=== PATIENT | male | born 1950 | race Caucasian/White ===

== ENCOUNTER 2017-04-03 09:11 | Emergency (ER) | payer BC ==
[~2017-04-03] VITALS: Ht 172.7 cm; Wt 79.0 kg
[~2017-04-03 09:11] MED LIST: ALEVE220 MG PO; ASPIR-LOW81 MG PO; NITROSTAT0.4 MG SL
[2017-04-03 10:04] LABS: APPEARANCE CLOUDY ((CLEAR)); BILIRUBIN NEGATIVE; BLOOD LARGE; COLOR AMBER ((YELLOW)); GLUCOSE (STRIP) NEGATIVE; KETONES NEGATIVE; LEUKOCYTES NEGATIVE; NITRITE NEGATIVE; PROTEIN (STRIP) 100; SPECIFIC GRAVITY 1.025 (1.000-1.030); UROBILINOGEN 0.2 MG/DL (0.2-1.0)
[2017-04-03 10:12] LABS: EPITHELIAL CELLS RARE /HPF; MUCUS 1+ /LPF; RED BLOOD CELLS TNTC /HPF (0-5); WHITE BLOOD CELLS 0-5 /HPF (0-5)
[2017-04-03 10:13] LABS: BACTERIA 1+ /HPF; CALCIUM OXALATE CRYSTALS RARE /HPF; HYALINE CASTS 0-5 /LPF; UCUL ADDED? YES
[2017-04-03 10:47] LABS: HEMATOCRIT 37.9 % (38.0-50.0); HEMOGLOBIN 12.5 G/DL (12.5-16.6); MCH 28.9 PG (29.0-34.0); MCV 87.7 FL (86-99); PLATELET COUNT 189 K/uL (156-360); RBC DIS.WIDTH-CV 12.2 % (11.8-14.6); RBC DIS.WIDTH-SD 39.5 % (39-53); RED BLOOD COUNT 4.32 M/uL (4.00-5.50); WHITE BLOOD COUNT 6.1 K/uL (4.1-10.2)
[2017-04-03 10:56] LABS: ALBUMIN 3.5 g/dL (3.2-4.8)
[2017-04-03 10:57] LABS: CHLORIDE 109 mEq/L (99-109); POTASSIUM 4.2 mEq/L (3.7-5.4); SODIUM 139 mEq/L (136-147)
[2017-04-03 10:59] LABS: GLUCOSE 123 mg/dL (70-99); TOTAL PROTEIN 5.8 g/dL (6.4-8.3)
[2017-04-03 11:01] LABS: TOTAL BILIRUBIN 0.3 mg/dL (0.0-1.0)
[2017-04-03 11:02] LABS: ALKALINE PHOSPHATASE 55 IU/L (3-129)
[2017-04-03 11:03] LABS: GFR ESTIMATE (CALCULATED) > 59 mL/min/ (58.99-99999)
[2017-04-03 11:04] LABS: AST (GOT) 13 IU/L (2-34); UREA NITROGEN (BUN) 17 mg/dL (9-23)
[2017-04-03 11:05] LABS: ALT (GPT) 21 IU/L (3-49)
[2017-04-03] MEDS ORDERED: TORADOL10 MG PO (11:53)
[2017-04-03] MEDS ORDERED: FLOMAX0.4 MG PO (11:53)
[2017-04-03] MEDS ORDERED: PERCOCET 5/31 TABLET PO (11:53)
[2017-04-03] MEDS ORDERED: ZOFRAN4 MG PO (11:55)
[2017-04-03 12:10] VITALS: BP 115/62
== END 2017-04-03 12:12 | disposition home or self-care (01) ==
LOC: EME 09:11
PROVIDERS: Emergency Medicine
DX: N13.2 Hydronephrosis with renal and ureteral calculous obstruction (principal); F17.200 Nicotine dependence, unspecified, uncomplicated
CPT/HCPCS: 74176; 80053; 81003; 85027; 87086; 99281; 99285; J1885; J2405; J3010; J7030